=== PATIENT | female | born 1965 | race Caucasian/White ===

== ENCOUNTER 2019-02-25 17:59 | Emergency (ER) | payer OTHER ==
--- NOTE | 2019-02-25 18:21 | ER Document Report ---
ED Medical Screen (RME) - General Chief Complaint: Chest Pain Stated Complaint: FALL INJURY Time Seen by Provider: 02/25/19 18:15 Primary Care Provider: RAFAEL YOUNG MD [Primary Care Provider] - Follow up as needed Mode of Arrival: Ambulatory Information source: Patient TRAVEL OUTSIDE OF THE [place] IN LAST 30 DAYS: No - Related Data Allergies/Adverse Reactions: erythromycin base [Erythromycin Base] Allergy (Severe, Verified 02/25/19 18:00) Violent N&V prednisone [Prednisone] Allergy (Severe, Verified 02/25/19 18:00) Severe Headache, body felt weighted down, couldn't move clindamycin HCl [From Cleocin] Allergy (Intermediate, Verified 02/25/19 18:00) Abdominal cramps clindamycin palmitate HCl [From Cleocin] Allergy (Intermediate, Verified 02/25/19 18:00) Abdominal cramps clindamycin phosphate [From Cleocin] Allergy (Intermediate, Verified 02/25/19 18:00) Abdominal cramps latex [Latex] Allergy (Unknown, Verified 02/25/19 18:00) Unknown reaction All Fragrances Allergy (Severe, Uncoded 02/25/19 18:00) Asthma attack Cleaning chemicals Allergy (Severe, Uncoded 02/25/19 18:00) Asthma attack r/t fragrance of chemical Bee stings Allergy (Intermediate, Uncoded 02/25/19 18:00) Shortness of Breath Past Medical History - Past Medical History Cardiac Medical History: Denies: Hx Coronary Artery Disease, Hx Heart Attack, Hx Hypertension Pulmonary Medical History: Reports: Hx Asthma, Hx COPD Denies: Hx Bronchitis, Hx Pneumonia Neurological Medical History: Denies: Hx Cerebrovascular Accident, Hx Seizures Renal/ Medical History: Denies: Hx Peritoneal Dialysis GI Medical History: Reports: Hx Gastroesophageal Reflux Disease Musculoskeltal Medical History: Denies Hx Arthritis Past Surgical History: Reports: Hx Cardiac Surgery - open heart, Hx Hysterectomy. Denies: Hx Pacemaker - Immunizations Hx Diphtheria, Pertussis, Tetanus Vaccination: Yes Physical Exam - Vital signs Vitals: Temp Pulse Resp BP Pulse Ox 98.0 F 77 18 150/86 H 99 02/25/19 18:10 02/25/19 18:10 02/25/19 18:10 02/25/19 18:10 02/25/19 18:10 Course - Vital Signs Vital signs: Temp Pulse Resp BP Pulse Ox 98.0 F 77 18 150/86 H 99 02/25/19 18:10 02/25/19 18:10 02/25/19 18:10 02/25/19 18:10 02/25/19 18:10 Doctor's Discharge - Discharge Referrals: RAFAEL YOUNG MD [Primary Care Provider] - Follow up as needed
--- NOTE | 2019-02-25 18:24 | ER Document Report ---
ED Medical Screen (RME) - General Chief Complaint: Chest Pain Stated Complaint: FALL INJURY Time Seen by Provider: 02/25/19 18:15 Primary Care Provider: RAFAEL YOUNG MD [Primary Care Provider] - Follow up as needed Mode of Arrival: Ambulatory Information source: Patient Notes: Patient is a 53-year-old female who had a CABG done at [facility] in November. Today she states that she fell, tripped over a baby gate and landed directly onto the middle of her chest and hit a high chair. Patient reports midsternal chest pain with shortness of breath. Patient also reports she is taking Coumadin. Spoke with attending physician, Dr. justice who recommends obtaining a CT of the chest with IV contrast. Exam: Lung sounds are clear and equal bilaterally. No visible ecchymosis on the chest. Tenderness to midsternal area with mild palpation. I have greeted and performed a rapid initial assessment of this patient. A comprehensive ED assessment and evaluation of the patient, analysis of test results and completion of the medical decision making process will be conducted by additional ED providers. Dictation of this chart was performed using voice recognition software; therefore, there may be some unintended grammatical errors. TRAVEL OUTSIDE OF THE [place] IN LAST 30 DAYS: No - Related Data Allergies/Adverse Reactions: erythromycin base [Erythromycin Base] Allergy (Severe, Verified 02/25/19 18:00) Violent N&V prednisone [Prednisone] Allergy (Severe, Verified 02/25/19 18:00) Severe Headache, body felt weighted down, couldn't move clindamycin HCl [From Cleocin] Allergy (Intermediate, Verified 02/25/19 18:00) Abdominal cramps clindamycin palmitate HCl [From Cleocin] Allergy (Intermediate, Verified 02/25/19 18:00) Abdominal cramps clindamycin phosphate [From Cleocin] Allergy (Intermediate, Verified 02/25/19 18:00) Abdominal cramps latex [Latex] Allergy (Unknown, Verified 02/25/19 18:00) Unknown reaction All Fragrances Allergy (Severe, Uncoded 02/25/19 18:00) Asthma attack Cleaning chemicals Allergy (Severe, Uncoded 02/25/19 18:00) Asthma attack r/t fragrance of chemical Bee stings Allergy (Intermediate, Uncoded 02/25/19 18:00) Shortness of Breath Past Medical History - Past Medical History Cardiac Medical History: Denies: Hx Coronary Artery Disease, Hx Heart Attack, Hx Hypertension Pulmonary Medical History: Reports: Hx Asthma, Hx COPD Denies: Hx Bronchitis, Hx Pneumonia Neurological Medical History: Denies: Hx Cerebrovascular Accident, Hx Seizures Renal/ Medical History: Denies: Hx Peritoneal Dialysis GI Medical History: Reports: Hx Gastroesophageal Reflux Disease Musculoskeltal Medical History: Denies Hx Arthritis Past Surgical History: Reports: Hx Cardiac Surgery - open heart, Hx Hysterectomy. Denies: Hx Pacemaker - Immunizations Hx Diphtheria, Pertussis, Tetanus Vaccination: Yes Physical Exam - Vital signs Vitals: Temp Pulse Resp BP Pulse Ox 98.0 F 77 18 150/86 H 99 02/25/19 18:10 02/25/19 18:10 02/25/19 18:10 02/25/19 18:10 02/25/19 18:10 Course - Vital Signs Vital signs: Temp Pulse Resp BP Pulse Ox 98.0 F 77 18 150/86 H 99 02/25/19 18:10 02/25/19 18:10 02/25/19 18:10 02/25/19 18:10 02/25/19 18:10 Doctor's Discharge - Discharge Referrals: RAFAEL YOUNG MD [Primary Care Provider] - Follow up as needed
[2019-02-25 18:54] LABS: ABSOLUTE EOSINOPHILS # (AUTO) 0.1 10^3/uL (0.0-0.6); ABSOLUTE MONOCYTES (AUTO) 0.4 10^3/uL (0.1-1.4); ABSOLUTE NEUT (AUTO) 3.3 10^3/uL (1.7-8.2); BASOPHILS % (AUTO) 0.8 % (0-2); EOSINOPHILS % (AUTO) 2.5 % (0-6); HEMATOCRIT 43.6 % (36.0-47.0); HEMOGLOBIN 14.6 g/dL (12.0-15.5); LYMPHOCYTES % (AUTO) 33.3 % (13-45); MEAN CORPUSCULAR HEMOGLOBIN 28.9 pg (27.0-33.4); MEAN CORPUSCULAR HGB CONC 33.5 g/dL (32.0-36.0); MEAN CORPUSCULAR VOLUME 86 fl (80-97); MONOCYTES % (AUTO) 6.5 % (3-13); PLATELET COUNT 244 10^3/uL (150-450); RED BLOOD COUNT 5.05 10^6/uL (3.72-5.28); RED CELL DISTRIBUTION WIDTH 12.9 % (11.5-14.0); SEGMENTED NEUTROPHILS % (AUTO) 56.9 % (42-78); TOTAL CELLS COUNTED % (AUTO) 100 %; WHITE BLOOD COUNT 5.9 10^3/uL (4.0-10.5)
[2019-02-25 19:07] LABS: ALANINE AMINOTRANSFERASE 45 U/L (9-52); ALBUMIN 4.3 g/dL (3.5-5.0); ALKALINE PHOSPHATASE 122 U/L (38-126); ANION GAP 7 (5-19); ASPARTATE AMINO TRANSFERASE 36 U/L (14-36); BILIRUBIN,DIRECT 0.3 mg/dL (0.0-0.4); BILIRUBIN,TOTAL 0.8 mg/dL (0.2-1.3); BLOOD UREA NITROGEN 16 mg/dL (7-20); CALCIUM 9.4 mg/dL (8.4-10.2); CARBON DIOXIDE 30 mmol/L (22-30); CHLORIDE 105 mmol/L (98-107); GLUCOSE 96 mg/dL (75-110); POTASSIUM 3.8 mmol/L (3.6-5.0); SODIUM 142.2 mmol/L (137-145); TOTAL PROTEIN 7.2 g/dL (6.3-8.2)
[2019-02-25] MEDS ORDERED: MORPHINE SULFATE 10 MG/ML INJ IV ONE (20:07)
[2019-02-25] MEDS ORDERED: ONDANSETRON HCL INJ/PF 4 MG/2 ML SDV IV ONE (20:08)
--- NOTE | 2019-02-25 20:08 | RADIOLOGY REPORT (SQ) ---
EXAM DESCRIPTION: RadLex: CT CHEST WITH IV CONTRAST CLINICAL HISTORY: 53 years Female; CABG in November, fell today hit sternum TECHNIQUE: CT of the chest using intravenous 80 mL Omnipaque [address] scans at this facility use dose modulation, iterative reconstruction, and/or weight based dosing when appropriate to reduce radiation dose to as low as reasonably achievable. COMPARISON: CT 11/12/2011 FINDINGS: Chest: Lungs: Lungs are clear. No pneumothorax or pleural effusion. Mediastinum: Changes of previous sternotomy are noted. There is a prosthetic aortic valve. No pericardial effusion. No mediastinal adenopathy. Aorta: Mild scattered calcification along the arch. No dissection. Ascending aorta is 3.6 cm. Descending is 2.3 cm. Bones: No evidence for acute sternal fracture. Sternal wires are in place. No retrosternal edema. Mild degenerative changes are noted in the thoracic spine. No acute rib fractures. No acute findings in the visualized portions of the upper abdomen. Liver is diffusely hypodense, consistent with hepatic steatosis. Gallbladder is surgically absent. IMPRESSION: 1. No acute findings. 2. Previous sternotomy with aortic valve replacement. 3. Hepatic steatosis 4. Previous cholecystectomy
[2019-02-25 20:31] LABS: INTERNATIONAL RATION (INR) 1.66; PROTHROMBIN TIME 20.4 SEC (11.4-15.4)
[2019-02-25] MEDS ORDERED: HYDROCODONE/ACETAMINOPHEN 5-325 MG (6 TAB/ER DISP) PO PRN (21:31)
--- NOTE | 2019-02-25 21:37 | ER Document Report ---
ED General - General Chief Complaint: Chest Pain Stated Complaint: FALL INJURY Time Seen by Provider: 02/25/19 18:15 Primary Care Provider: RAFAEL YOUNG MD [COMMUNITY BASED STAFF] - Follow up as needed Mode of Arrival: Ambulatory TRAVEL OUTSIDE OF THE [place] IN LAST 30 DAYS: No - HPI Notes: Patient is a 53-year-old female presents emergency department for evaluation of chest pain. She adamantly tripped, hit her chest wall on her grandchild's highchair. She states she became short of breath and had significant onset of pain at that time. She had open heart surgery back in November, so she became concerned. She is also on blood thinners. She denies hitting her head or losing consciousness. She denies any neck or back pain. Her pain is worse with deep breaths. - Related Data Allergies/Adverse Reactions: erythromycin base [Erythromycin Base] Allergy (Severe, Verified 02/25/19 18:00) Violent N&V prednisone [Prednisone] Allergy (Severe, Verified 02/25/19 18:00) Severe Headache, body felt weighted down, couldn't move clindamycin HCl [From Cleocin] Allergy (Intermediate, Verified 02/25/19 18:00) Abdominal cramps clindamycin palmitate HCl [From Cleocin] Allergy (Intermediate, Verified 02/25/19 18:00) Abdominal cramps clindamycin phosphate [From Cleocin] Allergy (Intermediate, Verified 02/25/19 18:00) Abdominal cramps latex [Latex] Allergy (Unknown, Verified 02/25/19 18:00) Unknown reaction All Fragrances Allergy (Severe, Uncoded 02/25/19 18:00) Asthma attack Cleaning chemicals Allergy (Severe, Uncoded 02/25/19 18:00) Asthma attack r/t fragrance of chemical Bee stings Allergy (Intermediate, Uncoded 02/25/19 18:00) Shortness of Breath Past Medical History - General Information source: Patient - Social History Smoking Status: Never Smoker Family History: DM Patient has suicidal ideation: No Patient has homicidal ideation: No - Past Medical History Cardiac Medical History: Denies: Hx Coronary Artery Disease, Hx Heart Attack, Hx Hypertension Pulmonary Medical History: Reports: Hx Asthma, Hx COPD Denies: Hx Bronchitis, Hx Pneumonia Neurological Medical History: Denies: Hx Cerebrovascular Accident, Hx Seizures Renal/ Medical History: Denies: Hx Peritoneal Dialysis GI Medical History: Reports: Hx Gastroesophageal Reflux Disease Musculoskeletal Medical History: Denies Hx Arthritis Past Surgical History: Reports: Hx Cardiac Surgery - open heart, Hx Hysterectomy. Denies: Hx Pacemaker - Immunizations Hx Diphtheria, Pertussis, Tetanus Vaccination: Yes Review of Systems - Review of Systems Constitutional: No symptoms reported EENT: No symptoms reported Cardiovascular: See HPI Respiratory: No symptoms reported Gastrointestinal: No symptoms reported Genitourinary: No symptoms reported Musculoskeletal: No symptoms reported Skin: No symptoms reported Neurological/Psychological: No symptoms reported Physical Exam - Vital signs Vitals: Temp Pulse Resp BP Pulse Ox 98.0 F 77 18 150/86 H 99 02/25/19 18:10 02/25/19 18:10 02/25/19 18:10 02/25/19 18:10 02/25/19 18:10 - Notes Notes: Vital signs reviewed, please refer to chart. Patient is normocephalic, atraumatic. Pupils equal round, reactive to light. Neck is supple without meningismus. Heart is regular rate and rhythm. Lungs are clear to auscultation bilaterally. She does have a well-healing chest wall surgical wound, consistent with recent open heart surgery. No signs of dehiscence or active bleeding. Chest wall excursion is equal bilaterally. No subcutaneous emphysema. Abdomen is soft, nontender, normoactive bowel sounds throughout. Extremities without cyanosis, clubbing, edema. Peripheral pulses are equal. Skin is warm and dry. Patient is awake, alert, neurological exam is nonfocal. Course - Re-evaluation Re-evalutation: 02/25/19 21:34 Patient presented to the emergency department for evaluation. She laboratory investigations and imaging as ordered through triage. She remained stable throughout the course of her stay. Her findings are consistent with a chest wall injury. She has no significant findings on CT scan. She is feeling improved after morphine here. We will send her home with a small course of Vicodin and close follow-up. She is to return to the emergency department with worsening or new concerning symptoms. It was noted that the patient's INR was low. She is due for her Coumadin dose here shortly. I explained to her that she should have this followed up by Dr. Lazo, who normally adjusts her Coumadin. She voiced understanding to this and was discharged. - Vital Signs Vital signs: Temp Pulse Resp BP Pulse Ox 98.0 F 77 18 150/86 H 99 02/25/19 18:10 02/25/19 18:10 02/25/19 18:10 02/25/19 18:10 02/25/19 18:10 - Laboratory Result Diagrams: 02/25/19 18:33 02/25/19 18:33 Laboratory results interpreted by me: 02/25/19 18:33 PT 20.4 H - Diagnostic Test Radiology reviewed: Reports reviewed - No acute findings Discharge - Discharge Clinical Impression: Chest wall injury Condition: Stable Disposition: HOME, SELF-CARE Instructions: Chest Wall Pain ([facility]) Additional Instructions: Take pain medication as prescribed, as needed for pain. Watch for constipation with this medication. Follow-up with your doctor next week. Your INR was only 1.66. Your Coumadin dose may need to be adjusted. Follow-up with Dr. Lazo regarding this. Return to the emergency department with worsening or new concerning symptoms of any sort. Referrals: RAFAEL YOUNG MD [COMMUNITY BASED STAFF] - Follow up as needed
[2019-02-25 22:33] VITALS: BP 132/90
--- NOTE | 2019-02-26 23:47 | EKG REPORT ---
SEVERITY:- BORDERLINE ECG - SINUS RHYTHM LVH BY VOLTAGE : Confirmed by: Britney Garrett 26-Feb-2019 23:46:51
== END 2019-02-25 22:31 | disposition home or self-care (01) ==
LOC: ER 17:59
DX: S29.9XXA Unspecified injury of thorax, initial encounter (principal); W01.198A Fall on same level from slipping, tripping and stumbling with subsequent striking against other object, initial encounter; J44.9 Chronic obstructive pulmonary disease, unspecified; R06.02 Shortness of breath; Z79.01 Long term (current) use of anticoagulants; Z98.890 Other specified postprocedural states; Z88.1 Allergy status to other antibiotic agents; Z88.8 Allergy status to other drugs, medicaments and biological substances; Z91.040 Latex allergy status; Z91.048 Other nonmedicinal substance allergy status; Z91.030 Bee allergy status
CPT/HCPCS: 93005; 99284; 96374; 36415; 85025; 85610; 80053; 84484; 71260; 93010; J2270; J2405

== ENCOUNTER 2019-03-29 10:24 | Emergency (ER) | payer OTHER ==
[2019-03-29] MEDS ORDERED: ASPIRIN 81 MG TABLET, CHEWABLE PO ONE (10:33)
--- NOTE | 2019-03-29 10:52 | ER Document Report ---
ED Medical Screen (RME) - General Chief Complaint: Chest Pain Stated Complaint: CHEST PAIN Time Seen by Provider: 03/29/19 10:47 Primary Care Provider: ZELDA RAMOS PA-C [Primary Care Provider] - Follow up as needed Mode of Arrival: Ambulatory Information source: Patient Notes: Patient presents emergency department with complaints of sharp chest pain left side of her chest that started this morning. Reports history of valve replacement in November. Reports history of asthma. Denies other symptoms such as fever vomiting diarrhea but reports she was short of breath. I have greeted and performed a rapid initial assessment of this patient. A comprehensive ED assessment and evaluation of the patient, analysis of test results and completion of the medical decision making process will be conducted by additional ED providers. Dictation of this chart was performed using voice recognition software; therefore, there may be some unintended grammatical er rors. TRAVEL OUTSIDE OF THE [place] IN LAST 30 DAYS: No - Related Data Allergies/Adverse Reactions: erythromycin base [Erythromycin Base] Allergy (Severe, Verified 03/29/19 10:29) Violent N&V prednisone [Prednisone] Allergy (Severe, Verified 03/29/19 10:29) Severe Headache, body felt weighted down, couldn't move clindamycin HCl [From Cleocin] Allergy (Intermediate, Verified 03/29/19 10:29) Abdominal cramps clindamycin palmitate HCl [From Cleocin] Allergy (Intermediate, Verified 03/29/19 10:29) Abdominal cramps clindamycin phosphate [From Cleocin] Allergy (Intermediate, Verified 03/29/19 10:29) Abdominal cramps latex [Latex] Allergy (Unknown, Verified 03/29/19 10:29) Unknown reaction All Fragrances Allergy (Severe, Uncoded 03/29/19 10:29) Asthma attack Cleaning chemicals Allergy (Severe, Uncoded 03/29/19 10:29) Asthma attack r/t fragrance of chemical Bee stings Allergy (Intermediate, Uncoded 03/29/19 10:29) Shortness of Breath Past Medical History - Past Medical History Cardiac Medical History: Denies: Hx Coronary Artery Disease, Hx Heart Attack, Hx Hypertension Pulmonary Medical History: Reports: Hx Asthma, Hx COPD Denies: Hx Bronchitis, Hx Pneumonia Neurological Medical History: Denies: Hx Cerebrovascular Accident, Hx Seizures Renal/ Medical History: Denies: Hx Peritoneal Dialysis GI Medical History: Reports: Hx Gastroesophageal Reflux Disease Musculoskeltal Medical History: Denies Hx Arthritis Past Surgical History: Reports: Hx Cardiac Surgery - open heart, Hx Hysterectomy. Denies: Hx Pacemaker - Immunizations Hx Diphtheria, Pertussis, Tetanus Vaccination: Yes Physical Exam - Vital signs Vitals: Temp Pulse Resp BP Pulse Ox 98.1 F 105 H 24 H 136/77 H 100 03/29/19 10:45 03/29/19 10:45 03/29/19 10:45 03/29/19 10:45 03/29/19 10:45 Course - Vital Signs Vital signs: Temp Pulse Resp BP Pulse Ox 98.1 F 105 H 24 H 136/77 H 100 03/29/19 10:45 03/29/19 10:45 03/29/19 10:45 03/29/19 10:45 03/29/19 10:45 Doctor's Discharge - Discharge Referrals: ZELDA RAMOS PA-C [Primary Care Provider] - Follow up as needed
[2019-03-29 11:42] LABS: ABSOLUTE LYMPHOCYTES (AUTO) 1.3 10^3/uL (0.5-4.7); ABSOLUTE MONOCYTES (AUTO) 0.7 10^3/uL (0.1-1.4); ABSOLUTE NEUT (AUTO) 6.7 10^3/uL (1.7-8.2); BASOPHILS % (AUTO) 0.3 % (0-2); EOSINOPHILS % (AUTO) 0.4 % (0-6); HEMATOCRIT 42.6 % (36.0-47.0); HEMOGLOBIN 14.2 g/dL (12.0-15.5); LYMPHOCYTES % (AUTO) 14.8 % (13-45); MEAN CORPUSCULAR HEMOGLOBIN 28.4 pg (27.0-33.4); MEAN CORPUSCULAR HGB CONC 33.4 g/dL (32.0-36.0); MEAN CORPUSCULAR VOLUME 85 fl (80-97); MONOCYTES % (AUTO) 7.6 % (3-13); PLATELET COUNT 213 10^3/uL (150-450); SEGMENTED NEUTROPHILS % (AUTO) 76.9 % (42-78); TOTAL CELLS COUNTED % (AUTO) 100 %; WHITE BLOOD COUNT 8.7 10^3/uL (4.0-10.5)
[2019-03-29 11:48] LABS: APPEARANCE,URINE SLIGHTLY-CLOUDY; BILIRUBIN,URINE NEGATIVE (NEGATIVE); COLOR,URINE STRAW; GLUCOSE, URINE NEGATIVE (NEGATIVE); KETONES,URINE NEGATIVE (NEGATIVE); LEUKOCYTE ESTERASE,URINE LARGE (NEGATIVE); NITRITE,URINE NEGATIVE (NEGATIVE); PROTEIN,URINE NEGATIVE (NEGATIVE); URINE SPECIFIC GRAVITY 1.004; UROBILINOGEN,URINE NEGATIVE mg/dL (<2.0)
[2019-03-29 12:00] LABS: ALANINE AMINOTRANSFERASE 38 U/L (9-52); ALBUMIN 4.3 g/dL (3.5-5.0); ALKALINE PHOSPHATASE 106 U/L (38-126); ANION GAP 8 (5-19); ASPARTATE AMINO TRANSFERASE 31 U/L (14-36); BILIRUBIN,DIRECT 0.2 mg/dL (0.0-0.4); BILIRUBIN,TOTAL 1.3 mg/dL (0.2-1.3); BLOOD UREA NITROGEN 16 mg/dL (7-20); CALCIUM 9.8 mg/dL (8.4-10.2); CARBON DIOXIDE 30 mmol/L (22-30); CHLORIDE 105 mmol/L (98-107); CREATINE KINASE 196 U/L (30-135); GLUCOSE 86 mg/dL (75-110); LIPASE 86.4 U/L (23-300); POTASSIUM 3.9 mmol/L (3.6-5.0); SODIUM 143.4 mmol/L (137-145)
--- NOTE | 2019-03-29 12:05 | RADIOLOGY REPORT (SQ) ---
EXAM DESCRIPTION: CHEST 2 VIEWS COMPLETED DATE/TIME: 03/29/2019 11:52 am REASON FOR STUDY: chest pain COMPARISON: 04/24/2014 EXAM PARAMETERS: NUMBER OF VIEWS: two views TECHNIQUE: Digital Frontal and Lateral radiographic views of the chest acquired. RADIATION DOSE: NA LIMITATIONS: none FINDINGS: LUNGS AND PLEURA: No opacities, masses or pneumothorax. No pleural effusion. MEDIASTINUM AND HILAR STRUCTURES: No masses or contour abnormalities. HEART AND VASCULAR STRUCTURES: Normal heart size. Aortic valvular prosthesis. Atherosclerotic thora cic aorta. BONES: Median sternotomy changes. No acute findings. HARDWARE: Prior cholecystectomy. Median surgical changes and aortic valvular prostheses. OTHER: No other significant finding. IMPRESSION: No evidence of acute cardiopulmonary process. TECHNICAL DOCUMENTATION: JOB ID: [id number] [employer]- All Rights Reserved Reading location - IP/workstation name: [email or web address]
[2019-03-29 12:23] LABS: INTERNATIONAL RATION (INR) 1.84; PROTHROMBIN TIME 22.1 SEC (11.4-15.4)
[2019-03-29] MEDS ORDERED: MORPHINE SULFATE 10 MG/ML INJ IV ONE (12:36)
--- NOTE | 2019-03-29 12:38 | ER Document Report ---
ED Cardiac - General Chief Complaint: Chest Pain Stated Complaint: CHEST PAIN Time Seen by Provider: 03/29/19 10:47 Primary Care Provider: ZELDA RAMOS PA-C [Primary Care Provider] - Follow up tomorrow KAMAR WHYTE MD [[facility]] - Follow up tomorrow Mode of Arrival: Ambulatory Information source: Patient Notes: Patient reports having chest pain that started around 330 this morning. Patient states that she typically wakes up at this time a day so she is not certain that the pain is what woke her up. Patient describes the pain as electrical sharp type pain that is worse with movement and inspiration. Patient denies any cough nausea or vomiting. Patient does report occasional shortness of breath. Patient denies any underlying cardiac history aside from a history of aortic stenosis and she reports having a mechanical valve replacement in November of this year. Patient does take Coumadin. TRAVEL OUTSIDE OF THE [place] IN LAST 30 DAYS: No - HPI Patient complains to provider of: Chest pain Was the onset of pain: Gradual Quality of pain: Sharp - Sharp electrical pain Pain level currently: 3 Cardiac risk factors: denies: Diabetes, Hypertension, Smoker, + Family history, Hx CHF, Hx NV Associated symptoms: Shortness of breath. denies: Back pain, Cool extremities, Dizziness, Headache, Heartburn, Neck pain Exacerbated by: Deep breaths Recently seen / treated by doctor: No - Related Data Allergies/Adverse Reactions: erythromycin base [Erythromycin Base] Allergy (Severe, Verified 03/29/19 10:29) Violent N&V prednisone [Prednisone] Allergy (Severe, Verified 03/29/19 10:29) Severe Headache, body felt weighted down, couldn't move clindamycin HCl [From Cleocin] Allergy (Intermediate, Verified 03/29/19 10:29) Abdominal cramps clindamycin palmitate HCl [From Cleocin] Allergy (Intermediate, Verified 03/29/19 10:29) Abdominal cramps clindamycin phosphate [From Cleocin] Allergy (Intermediate, Verified 03/29/19 10:29) Abdominal cramps latex [Latex] Allergy (Unknown, Verified 03/29/19 10:29) Unknown reaction All Fragrances Allergy (Severe, Uncoded 03/29/19 10:29) Asthma attack Cleaning chemicals Allergy (Severe, Uncoded 03/29/19 10:29) Asthma attack r/t fragrance of chemical Bee stings Allergy (Intermediate, Uncoded 03/29/19 10:29) Shortness of Breath Past Medical History - General Information source: Patient - Social History Smoking Status: Never Smoker Frequency of alcohol use: None Drug Abuse: None Lives with: Family Family History: DM Patient has suicidal ideation: No Patient has homicidal ideation: No - Past Medical History Cardiac Medical History: Reports: Other - Aortic stenosis Denies: Hx Coronary Artery Disease, Hx DVT, Hx Heart Attack, Hx Hypertension, Hx Pulmonary Embolism Pulmonary Medical History: Reports: Hx Asthma, Hx COPD Denies: Hx Bronchitis, Hx Pneumonia Neurological Medical History: Denies: Hx Cerebrovascular Accident, Hx Seizures Renal/ Medical History: Denies: Hx Peritoneal Dialysis GI Medical History: Reports: Hx Gastroesophageal Reflux Disease Musculoskeletal Medical History: Denies Hx Arthritis Past Surgical History: Reports: Hx Cardiac Surgery - Aortic valve replacement open heart, Hx Cholecystectomy, Hx Hysterectomy. Denies: Hx Pacemaker - Immunizations Hx Diphtheria, Pertussis, Tetanus Vaccination: Yes Review of Systems - Review of Systems Constitutional: No symptoms reported. denies: Fever, Recent illness EENT: No symptoms reported Cardiovascular: Chest pain. denies: Syncope, Dizziness, Lightheaded Respiratory: Short of breath. denies: Cough Gastrointestinal: No symptoms reported. denies: Abdominal pain, Vomiting Genitourinary: No symptoms reported. denies: Dysuria, Flank pain Female Genitourinary: No symptoms reported Musculoskeletal: No symptoms reported. denies: Back pain, Leg swelling Skin: No symptoms reported Hematologic/Lymphatic: No symptoms reported Neurological/Psychological: No symptoms reported Physical Exam - Vital signs Vitals: Temp Pulse Resp BP Pulse Ox 98.1 F 105 H 24 H 136/77 H 100 03/29/19 10:45 03/29/19 10:45 03/29/19 10:45 03/29/19 10:45 03/29/19 10:45 - General General appearance: Appears well, Alert In distress: None - HEENT Head: Normocephalic, Atraumatic Eyes: Normal Conjunctiva: Normal Nasal: Normal Mouth/Lips: Normal Mucous membranes: Normal Neck: Normal, Supple. No: Lymphadenopathy - Respiratory Respiratory status: No respiratory distress Chest status: Pain on movement, Pain with cough, Pain with deep breathing Breath sounds: Normal Chest palpation: Tender - Tenderness to midsternal chest area, this does coincide with scar to anterior chest - Cardiovascular Rhythm: Tachycardia Heart sounds: S1 appreciated, S2 appreciated Notes: Snap from mechanical valve auscultated - Abdominal Inspection: Obese Distension: No distension Bowel sounds: Normal Tenderness: Nontender Organomegaly: No organomegaly - Back Back: Normal, Nontender. No: CVA tenderness - Extremities General upper extremity: Normal inspection, Normal ROM General lower extremity: Normal inspection, Normal ROM - Neurological Neuro grossly intact: Yes Cognition: Normal Atlantic Coma Scale Eye Opening: Spontaneous William Coma Scale Verbal: Oriented Atlantic Coma Scale Motor: Obeys Commands Atlantic Coma Scale Total: 15 - Psychological Associated symptoms: Normal affect, Normal mood - Skin Skin Temperature: Warm Skin Moisture: Dry Skin Color: Normal Course - Re-evaluation Re-evalutation: 03/29/19 12:[address] Mejía regarding patient presentation and diagnostic evaluation. Agrees with plan to order a CTA for further evaluation given tachycardia and subtherapeutic INR with chest pain. Patient without any history of cardiovascular disease aside from history of aortic stenosis with mechanical valve replacement. No history of hypertension dyslipidemia. 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 Did speak with radiologist Dr. Daly to review patient's CT of the chest that was performed in February after a fall. He states that there is no change in the appearance of her sternum as compared with the previous CT. Patient with elevated CK although no elevation in delta troponin. Patient with a heart score of 2. Chest pain is reproducible with palpation. Patient's tachycardia has resolved at this time after IV fluid administration. The patient has atypical chest pain as the patient's chest pain is not suggest ashvin of pulmonary embolus, cardiac ischemia, aortic dissection, or other serious etiology. Given the extremely low risk of these diagnoses for the test in evaluation for these possibilities does not appear to be indicated at this time. Patient has been instructed to return if the symptoms worsen or change in any way. - Vital Signs Vital signs: Temp Pulse Resp BP Pulse Ox 97.9 F 105 H 18 111/75 98 03/29/19 16:42 03/29/19 10:45 03/29/19 16:42 03/29/19 16:00 03/29/19 16:42 - Laboratory Result Diagrams: 03/29/19 11:30 03/29/19 11:30 Laboratory results interpreted by me: 03/29/19 03/29/19 03/29/19 11:30 11:30 11:30 PT 22.1 H Creatine Kinase 196 H Urine Blood SMALL H Ur Leukocyte Esterase LARGE H - Diagnostic Test Radiology reviewed: Reports reviewed - EKG Interpretation by Me EKG shows normal: Sinus rhythm Rate: Normal Voltage: Consistant with LVH When compared to previous EKG there are: No significant change Discharge - Discharge Clinical Impression: Chest pain Qualifiers: Chest pain type: unspecified Qualified Code(s): R07.9 - Chest pain, unspecified UTI (urinary tract infection) Qualifiers: Urinary tract infection type: site unspecified Hematuria presence: with hemat uria Qualified Code(s): N39.0 - Urinary tract infection, site not specified Condition: Stable Disposition: HOME, SELF-CARE Instructions: Chest Wall Pain ([facility]), Urinary Tract Infection ([facility]) Additional Instructions: Return immediately for any new or worsening symptoms Followup with your primary care provider, call tomorrow to make a followup appointment Follow-up with your pipe smoking machine offbearer for recheck. Call tomorrow for an appointment. Your INR was below the therapeutic window. Contact your pipe smoking machine offbearer and discuss your med regimen with them. You may need to adjust her medications. Be sure that you are not eating foods that can alter the absorption of your Couma din. Prescriptions: Cephalexin Monohydrate [Keflex 500 mg Capsule] 500 mg PO BID 5 Days capsule Methocarbamol [Robaxin 500 Mg Tablet] 500 mg PO QID PRN #20 tablet PRN Reason: Forms: Return to Work Referrals: ZELDA RAMOS PA-C [Primary Care Provider] - Follow up tomorrow KAMAR WHYTE MD [[facility]] - Follow up tomorrow
[2019-03-29] MEDS ORDERED: OXYCODONE-ACETAMINOPHEN 5-325 MG TABLET PO ONE (12:43)
--- NOTE | 2019-03-29 13:22 | RADIOLOGY REPORT (SQ) ---
EXAM DESCRIPTION: CTA CHEST COMPLETED DATE/TIME: 03/29/2019 1:02 pm REASON FOR STUDY: L side cp, hx aortic valvc, subtherapeutic INR COMPARISON: 02/25/2019 TECHNIQUE: CT scan of the chest performed using helical scanning technique with dynamic intravenous contrast injection. Images reviewed with lung, soft tissue and bone windows. Reconstructed coronal and sagittal MPR images reviewed. Additional 3 dimensional post-processing performed to develop Maximal Intensity Projection images (WA P). All images stored on PACS. All CT scanners at this facility use dose modulation, iterative reconstruction, and/or weight based d osing when appropriate to reduce radiation dose to as low as reasonably achievable (ALARA). [facility]: Dose Right [facility]: CareDose [facility]: Dose Right [facility]: Teradose 4D [facility]: Photetica CONTRAST TYPE AND DOSE: contrast/concentration: Isovue 350.00 mg/ml; Total Contrast Delivered: 79.0 ml; Total Saline Delivered: 89.0 ml Contrast bolus optimized for the pulmonary arteries. Not diagnostic for the aorta. RENAL FUNCTION: None required. The patient is less than 50 years old. RADIATION DOSE: CT Rad equipment meets quality standard of care and radiation dose reduction techniq ues were employed. CTDIvol: 13.2 - 21.4 mGy. DLP: 747 mGy-cm. . LIMITATIONS: None. FINDINGS: LUNGS AND PLEURA: No masses, infiltrates, or pneumothorax. No pleural effusions or pleura l calcifications. AORTA AND GREAT VESSELS: No aneurysm. Contrast bolus not optimized for the aorta. HEART: No pericardial effusion. No significant coronary artery calcifications. PULMONARY ARTERIES: No emboli visualized in the main pulmonary arteries or the segmental branches. HILAR AND MEDIASTINAL STRUCTURES: No identified masses or abnormal nodes. HARDWARE: None in the chest. UPPER ABDOMEN: Hepatic steatosis. Status post cholecystectomy. THYROID AND OTHER SOFT TISSUES: No masses. No adenopathy. 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 Cardiomegaly with aortic valve prosthe sis. 3D MIPS: Confirm above findings. OTHER: No other significant finding. IMPRESSION: 1. Negative examination for pulmonary embolism. 2. 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 3. Hepatic steatosis. COMMENT: Quality ID # [id number]: Final reports with documentation of one or more dose reduction techniques (e.g., Automated exposure control, adjustment of the mA and/or kV according to patient size, use of iterative reconstruction technique) TECHNICAL DOCUMENTATION: JOB ID: [id number] [employer] [facility] [employer]- All Rights Reserved Reading location - IP/workstation name: [email or web address]
--- NOTE | 2019-03-29 14:39 | EKG REPORT ---
SEVERITY:- ABNORMAL ECG - SINUS TACHYCARDIA LEFT VENTRICULAR HYPERTROPHY : Confirmed by: Ivan Bhardwaj MD 29-Mar-2019 14:38:39
[2019-03-29 16:42] VITALS: BP 111/75
== END 2019-03-29 16:43 | disposition home or self-care (01) ==
LOC: ER 10:24
DX: R07.9 Chest pain, unspecified (principal); N39.0 Urinary tract infection, site not specified; R06.02 Shortness of breath; Z79.01 Long term (current) use of anticoagulants; J44.9 Chronic obstructive pulmonary disease, unspecified
CPT/HCPCS: 36415; 71046; 71275; 80053; 81001; 82550; 83690; 84484; 85025; 85610; 87086; 87088; 87186; 93005; 93010; 99285

== ENCOUNTER 2020-03-28 17:29 | Emergency (ER) | payer OTHER ==
[2020-03-28] MEDS ORDERED: HYDROCODONE/ACETAMINOPHEN 5-325 MG (6 TAB/ER DISP) PO PRN (17:44)
[2020-03-28] MEDS ORDERED: HYDROCODONE/ACETAMINOPHEN 5-325 MG TABLET PO ONE (17:47)
--- NOTE | 2020-03-28 17:47 | ER Document Report ---
HPI - HPI Patient complains to provider of: right ankle and right foot pain Time Seen by Provider: 03/28/20 17:38 Onset: Just prior to arrival Onset/Duration: Sudden Quality of pain: Achy Severity: Moderate Pain Level: 4 Associated Symptoms: None Exacerbated by: Walking Relieved by: Remaining still Similar symptoms previously: No Recently seen / treated by doctor: No Notes: 54-year-old female past medical history significant for asthma, hypothyroidism, presents to the emergency room complaining of right ankle and right foot pain. Patient states while walking her dog she stepped in a hole twisting her ankle and felt a pop to her ankle and foot. No history of previous trauma or injury to her right ankle or foot. States is able to walk but is painful. Did not take any medications for her symptoms. - REPRODUCTIVE Reproductive: DENIES: : - MUSCULOSKELETAL Musculoskeletal: REPORTS: Extremity pain - DERM Skin Color: Normal Past Medical History - Social History Smoking Status: Former Smoker Chew tobacco use (# tins/day): No Frequency of alcohol use: None Drug Abuse: None Family History: DM Patient has homicidal ideation: No - Past Medical History Cardiac Medical History: Denies: Hx Coronary Artery Disease, Hx DVT, Hx Heart Attack, Hx Hypertension, Hx Pulmonary Embolism Pulmonary Medical History: Reports: Hx Asthma, Hx COPD Denies: Hx Bronchitis, Hx Pneumonia Neurological Medical History: Denies: Hx Cerebrovascular Accident, Hx Seizures Renal/ Medical History: Denies: Hx Peritoneal Dialysis GI Medical History: Reports: Hx Gastroesophageal Reflux Disease Musculoskeletal Medical History: Denies Hx Arthritis Past Surgical History: Reports: Hx Cardiac Surgery - Aortic valve replacement open heart, Hx Cholecystectomy, Hx Hysterectomy. Denies: Hx Pacemaker - Immunizations Hx Diphtheria, Pertussis, Tetanus Vaccination: Yes Vertical Provider Document - CONSTITUTIONAL Agree With Documented VS: Yes Exam Limitations: No Limitations General Appearance: WD/WN, Moderate Distress - INFECTION CONTROL TRAVEL OUTSIDE OF THE [place] IN LAST 30 DAYS: No - HEENT HEENT: Atraumatic - NECK Neck: Normal Inspection - RESPIRATORY Respiratory: Breath Sounds Normal, No Respiratory Distress, Chest Non-Tender. negative: Rales, Rhonchi, Wheezing - CARDIOVASCULAR Cardiovascular: Regular Rate Notes: Grade 2 out of 6 systolic murmur noted - BACK Back: Normal Inspection - MUSCULOSKELETAL/EXTREMETIES Musculoskeletal/Extremeties: Tender Notes: Swelling and tenderness noted over the right lateral midfoot and the right lateral malleolus. Nontender with flexion, extension of the right foot. Pain with eversion and inversion of the right foot. No obvious deformity noted. Gait not tested secondary to pain - NEURO Level of Consciousness: Awake, Alert, Appropriate Motor/Sensory: No Motor Deficit, No Sensory Deficit - DERM Integumentary: Warm, Dry. negative: No Rash Course - Re-evaluation Re-evalutation: 03/28/20 18:56 Patient's resting comfortably with decreased pain. Reviewed x-ray results with patient. Aware of avulsion fracture to the right navicular bone of the right foot. Postop shoe applied by nursing staff as documented. Neurovascularly intact. Able to ambulate after postop shoe was applied with limping noted to right leg. Counseled to wear postop shoe until she has had outpatient follow-up with primary care physician and orthopedics as discussed. Rest, ice, elevate right foot, Tylenol as needed for pain, she was given strict return to the emergency room guidelines. Return for any new or worsening symptoms. All questions were answered. Patient verbalized understanding and agrees plan of care. 03/28/20 19:12 03/28/20 19:13 - Vital Signs Vital signs: Temp Pulse Resp BP Pulse Ox 98.6 F 80 18 158/94 H 98 03/28/20 17:39 03/28/20 17:36 03/28/20 17:36 03/28/20 17:36 03/28/20 17:36 - Diagnostic Test Radiology reviewed: Reports reviewed Discharge - Discharge Clinical Impression: Avulsion fracture of navicular bone of right foot Qualifiers: Encounter type: initial encounter Fracture type: closed Qualified Code(s): S92.251A - Displaced fracture of navicular [scaphoid] of right foot, initial encounter for closed fracture Right ankle sprain Qualifiers: Encounter type: initial encounter Involved ligament of ankle: unspecified ligament Qualified Code(s): S93.401A - Sprain of unspecified ligament of right ankle, initial encounter Condition: Stable Disposition: HOME, SELF-CARE Instructions: Avulsion Fracture ([facility]), Foot Fracture ([facility]), Post-Op Shoe ([facility]), Sprained Ankle ([facility]) Additional Instructions: , Ice, elevate right foot. Follow-up with your primary care physician or orthopedics in 3 to 5 days for recheck. Wear postop shoe until you see either your primary care physician or your orthopedist. Tylenol as needed for pain. Return for any new or worsening symptoms. Referrals: ZELDA RAMOS PA-C [NO LOCAL MD] - Follow up in 3-5 days LENNOX MEZA MD [ACTIVE [employer]OVISIONAL STAFF] - Follow up in 3-5 days
--- NOTE | 2020-03-28 18:21 | RADIOLOGY REPORT (SQ) ---
EXAM DESCRIPTION: ANKLE RIGHT COMPLETE IMAGES COMPLETED DATE/TIME: 03/28/2020 6:09 pm REASON FOR STUDY: injury COMPARISON: None. NUMBER OF VIEWS: Three views. TECHNIQUE: AP, lateral, and oblique radiographic images acquired of the right ankle. LIMITATIONS: None. FINDINGS: MINERALIZATION: Normal. BONES: No acute fracture or dislocation. No worrisome bone lesions. JOINTS: No effusions. SOFT TISSUES: Mild soft tissue swelling. No foreign body. OTHER: No other significant finding. IMPRESSION: 1. No acute osseous findings. 2. Mild soft tissue swelling. TECHNICAL DOCUMENTATION: JOB ID: [id number] 2010 [employer]- All Rights Reserved Reading location - IP/workstation name: [email or web address]
--- NOTE | 2020-03-28 18:23 | RADIOLOGY REPORT (SQ) ---
EXAM DESCRIPTION: FOOT RIGHT COMPLETE IMAGES COMPLETED DATE/TIME: 03/28/2020 6:09 pm REASON FOR STUDY: injury COMPARISON: None. NUMBER OF VIEWS: Three views. TECHNIQUE: AP, lateral and oblique radiographic images acquired of the right foot. LIMITATIONS: None. FINDINGS: MINERALIZATION: Normal. BONES: Small avulsion fracture dorsal aspect of the navicular bone, best seen on the lateral image. Mild soft tissue swelling. JOINTS: No effusions. SOFT TISSUES: No soft tissue swelling. No foreign body. OTHER: No other significant finding. IMPRESSION: 1. Small avulsion fracture dorsal aspect navicular bone best seen on the lateral image. 2. Mild soft tissue swelling. TECHNICAL DOCUMENTATION: JOB ID: [id number] 2010 [employer]- All Rights Reserved Reading location - IP/workstation name: [email or web address]
[2020-03-28 19:04] VITALS: BP 145/93
== END 2020-03-28 19:05 | disposition home or self-care (01) ==
LOC: ER 17:29
DX: S92.251A Displaced fracture of navicular [scaphoid] of right foot, initial encounter for closed fracture (principal); S93.401A Sprain of unspecified ligament of right ankle, initial encounter; X50.0XXA Overexertion from strenuous movement or load, initial encounter; Y93.K1 Activity, walking an animal
CPT/HCPCS: 99283